=== PATIENT | female | born 1955 | race Two or more races ===

== ENCOUNTER 2019-08-04 10:04 | Day surgery (SDC) | payer OTHER ==
[2019-08-03 15:19] VITALS: BMI 32.1
[2019-08-04 11:57] VITALS: TEMP 98.2
[2019-08-04 13:04] VITALS: BP 125/82; PULSE 88
--- NOTE | 2019-08-05 17:03 | PATH ---
Surgical Pathology Report Patient Name: RAYMOND BENNETT [facility]. Rec. #: [id number] /Age/Gender: 1955 (Age: 64) / F Account: [id number] Location: [facility]-ENDOSCOPY Taken: 08/04/2019 Received: 08/04/2019 Reported: 08/05/2019 Physicians: Joe Flores M.D. Specimen(s) Received A: RECTUM POLYP HOT SNARE B: MID TRANSVERSE COLON LIPOMA C: RECTSIGMOID Clinical History Screening, history of rectosigmoid colon cancer Postoperative diagnosis: Colon polyps, lipoma, rectosigmoid anastomosis Final Diagnosis A. RECTUM POLYP, BIOPSY: POLYPOID COLONIC MUCOSA WITH FOCAL EPITHELIAL DENUDATION AND REACTIVE LYMPHOID AGGREGATE. B. MID TRANSVERSE COLON LIPOMA, BIOPSY: COLONIC MUCOSA WITH ABUNDANT MATURE ADIPOSE TISSUE IN THE SUBMUCOSA, CONSISTENT WITH A SUBMUCOSAL LIPOMA. C. RECTOSIGMOID ANASTOMOSIS BIOPSY: COLONIC MUCOSA WITH FOCAL HEMORRHAGE AND REACTIVE LYMPHOID AGGREGATE IN THE LAMINA PROPRIA. NEGATIVE FOR CARCINOMA. Electronically Signed Ramón Crow M.D. Gross Description A. Received in formalin, labeled "rectum polyp" is a graham, irregular portion of soft tissue measuring 0.4 cm. in greatest dimension. The specimen is submitted in toto in one cassette. B. Received in formalin, labeled "mid transverse colon lipoma biopsy" are 2 graham, irregular portions of soft tissue measuring 0.5 and 0.6 cm. in greatest dimension. The specimens are submitted in toto in one cassette. C. Received in formalin, labeled "rectosigmoid anastomosis biopsy" are 3 graham, irregular portions of soft tissue ranging from 0.3-0.5 cm. in greatest dimension. The specimens are submitted in toto in one cassette. DL/08/04/2019 saudi/08/04/2019
== END 2019-08-04 12:55 | disposition home or self-care (01) ==
LOC: JASU-ENDO 10:04
PROVIDERS: ATTEND Internal Medicine Gastroenterology
PROC: 0DBN8ZX Excision of Sigmoid Colon, Via Natural or Artificial Opening Endoscopic, Diagnostic (ICD-10-PCS; 2019-08-04)
PROC: 0DBL8ZX Excision of Transverse Colon, Via Natural or Artificial Opening Endoscopic, Diagnostic (ICD-10-PCS; 2019-08-04)
PROC: 0DBP8ZX Excision of Rectum, Via Natural or Artificial Opening Endoscopic, Diagnostic (ICD-10-PCS; principal; 2019-08-04 10:45)
DX: Z12.11 Encounter for screening for malignant neoplasm of colon (principal); Z85.048 Personal history of other malignant neoplasm of rectum, rectosigmoid junction, and anus; K57.30 Diverticulosis of large intestine without perforation or abscess without bleeding; K64.8 Other hemorrhoids; Z98.0 Intestinal bypass and anastomosis status; K62.1 Rectal polyp; D17.79 Benign lipomatous neoplasm of other sites

== ENCOUNTER 2020-11-24 06:31 | Day surgery (SDC) | payer BC ==
[2020-11-23 12:32] VITALS: BMI 31.8
[2020-11-24] MEDS ORDERED: THROMBIN (BOVINE) 5,000 UNIT VIAL TP ONE (07:11)
[2020-11-24] MEDS ORDERED: LIDOCAINE 1%/EPI 1:100000 (50 ML MULTI DOSE VIAL) ONE (07:11)
[2020-11-24] MEDS ORDERED: PROPOFOL 20 ML ONE (07:26)
[2020-11-24] MEDS ORDERED: SUCCINYLCHOLINE CHLORIDE 200 MG/10 ML SYRINGE ONE (07:26)
[2020-11-24] MEDS ORDERED: fentaNYL CITRATE 250 MCG/5 ML VIAL ONE ×2 (07:26→08:48)
[2020-11-24] MEDS ORDERED: LIDOCAINE HCL 2% 100 MG/5 ML DISP.SYRIN ONE (07:26)
[2020-11-24] MEDS ORDERED: MIDAZOLAM HCL 2 MG/2 ML SINGLE DOSE VIAL ONE (07:28)
[2020-11-24] MEDS ORDERED: CLINDAMYCIN PHOSPHATE 600 MG/4 ML VIAL ONE (08:32)
[2020-11-24] MEDS ORDERED: CLINDAMYCIN PHOSPHATE 900 MG/6 ML VIAL IVPB ONE (08:34)
[2020-11-24] MEDS ORDERED: LIDOCAINE 1%/EPI 1:100000 (20 ML MULTI DOSE VIAL) IJ ONE (08:36)
[2020-11-24] MEDS ORDERED: ONDANSETRON 4 MG/2 ML VIAL IVPUSH PRN (09:44)
[2020-11-24] MEDS ORDERED: LACTATED RINGERS SOLUTION 1,000 ML IV SCH ×2 (09:45)
[2020-11-24] MEDS ORDERED: ALBUTEROL SO4 0.083% IH SOL 2.5 MG/3 ML VIAL.NEB. NEB ONE (13:00)
[2020-11-24 13:32] VITALS: TEMP 97.3
[2020-11-24 14:11] VITALS: BP 153/90; PULSE 103
== END 2020-11-24 15:05 | disposition home or self-care (01) ==
LOC: JASU-SURG 06:31
PROVIDERS: ATTEND Surgery
PROC: 0GTG0ZZ Resection of Left Thyroid Gland Lobe, Open Approach (ICD-10-PCS; principal; 2020-11-24 08:00)
DX: E04.2 Nontoxic multinodular goiter (principal)
CPT/HCPCS: 86850; 86900; 86901; 88307-TC; 94760